=== PATIENT | male | born 1950 ===

== ENCOUNTER 2025-01-16 18:58 | Outpatient (CLI) | payer MEDICARE, OTHER, SELFPAY | END 2025-01-16 18:59 | disposition home or self-care (01) | LOC: AMB 01-19 17:11 | PROVIDERS: Visit Provider Family Medicine | DX: S09.90XA Unspecified injury of head, initial encounter (principal); W17.89XA Other fall from one level to another, initial encounter; Y92.9 Unspecified place or not applicable | CPT/HCPCS: A0425; A0427 ==